=== PATIENT | female | born 1960 ===

== ENCOUNTER 2016-02-20 06:06 | Emergency (ER) | payer OTHER ==
[2016-02-20] MEDS ORDERED: ACETAMINOPHEN 500 MG TABLET ONE (06:41)
[2016-02-20] MEDS ORDERED: IBUPROFEN 600 MG TABLET ONE (06:41)
--- NOTE | 2016-02-20 08:40 | RAD ---
ELBOW - RIGHT 2 VIEWS COMPARISON: None HISTORY: Ground-level fall. Lateral right elbow pain. FINDINGS: Views: Right elbow AP and lateral Bones: Normal Joints: Normal Soft tissues: Normal IMPRESSION: Normal study.
--- NOTE | 2016-02-20 08:40 | RAD ---
HAND-RIGHT 3 VIEWS COMPARISON: None HISTORY: Ground-level fall. Laceration of the right hand. FINDINGS: Views: Right hand PA, oblique, lateral Bones: Normal Joints: Normal Soft tissues: Normal IMPRESSION: Negative 3 views of the right hand.
--- NOTE | 2016-02-20 08:42 | RAD ---
CHEST - 2 VIEWS COMPARISON: Chest 2 views, 05/31/2013 HISTORY: Ground-level fall. Right chest pain. FINDINGS: Views: Frontal and lateral chest Lungs: Normal Heart and vessels: Normal Trachea and bronchi: Normal Mediastinum and keshawn: Normal Costophrenic sulci: Normal Chest wall and bones: Normal. Upper abdomen: Normal. IMPRESSION: Negative 2 view chest.
== END 2016-02-20 09:18 | disposition home or self-care (01) ==
LOC: ED 06:06
DX: S46.911A Strain of unspecified muscle, fascia and tendon at shoulder and upper arm level, right arm, initial encounter (principal); S29.012A Strain of muscle and tendon of back wall of thorax, initial encounter; W00.0XXA Fall on same level due to ice and snow, initial encounter; Y92.9 Unspecified place or not applicable
CPT/HCPCS: 71020; 73070; 73130; 99283 ×2; A9270 ×2

== ENCOUNTER 2016-06-19 12:37 | Emergency (ER) | payer OTHER ==
[2016-06-19] MEDS ORDERED: ONDANSETRON 4 MG/2ML 2 ML VIAL ONE (14:10)
--- NOTE | 2016-06-19 14:50 | RAD ---
EXAMINATION:CHEST - 2 VIEWS CLINICAL INDICATION: Cough and fever COMPARISON: 02/20/2016 FINDINGS: The cardiomediastinal silhouette is within normal limits. There is no adenopathy identified. There is no pleural effusion. The lungs are clear. The osseous structures are unremarkable for age. IMPRESSION: Negative PA and lateral views of the chest. No acute cardiopulmonary process is identified.
[2016-06-19 14:56] LABS: ABSOLUTE NEUTROPHIL COUNT 7.4 K/mm3 (1.8-7.7); BASO # 0.1 K/mm3 (0.0-0.2); BASO % 0.5 % (0.2-1.0); EOS # 0.2 (0.0-0.5); EOS % 1.6 % (0.9-2.9); HEMATOCRIT 42.2 % (37.0-47.0); HEMOGLOBIN 14.2 gm/l (12.0-16.0); IMM NEUT% 0.3 % (0-1); LYMPH # 2.4 (1.0-4.8); LYMPH % 22.2 % (15-45); MEAN CELL VOLUME 85.9 fl (81.0-99.0); MEAN CORPUSCULAR HEMOGLOBIN 28.9 pg (27.0-31.0); MEAN CORPUSCULAR HGB CONC 33.6 g/dl (33.0-37.0); MEAN PLATELET VOLUME 11.3 fl (7.4-10.4); MONO # 0.9 (0.0-0.8); MONO % 8.4 % (4-12); PLATELET COUNT 262 K/mm3 (130-400); RED CELL DISTRIBUTION WIDTH 13.2 % (11.5-14.5)
[2016-06-19 15:05] LABS: ALB/GLOB RATIO 1.2 (>1.0); ALBUMIN 4.1 gm/dL (3.5-5.7)
== END 2016-06-19 16:09 | disposition home or self-care (01) ==
LOC: ED 12:37
DX: B34.9 Viral infection, unspecified (principal); J02.9 Acute pharyngitis, unspecified; J45.909 Unspecified asthma, uncomplicated